=== PATIENT | female | born 1995 | race American Indian/Alaskan Native ===

== ENCOUNTER 2021-09-24 18:32 | Emergency (ER) | payer SELFPAY ==
[2021-09-24 18:37] VITALS: BP 122/78
--- NOTE | 2021-09-24 18:38 | Emergency Department Report ---
ED Lower Extremity HPI - General Stated Complaint: RE-BROKE OR SPRAINED MY FOOT Time Seen by Provider: 09/24/21 18:34 - History of Present Illness Initial Comments: Patient presented with right foot pain. Last night, she thinks that she might of injured her foot with an inversion injury. She almost fell. She was still having pain today and came in. She is taken some Tylenol without true symptomatic improvement. She did take some ibuprofen with improvement. Patient is injured her foot before. She was concerned about this. She is not complaining of ankle pain or knee pain. She did not hit her head. There is no other complaint at this time. Pain is constant and worse with ambulation. - Related Data Previous Rx's Medication Instructions Recorded Last Taken Type Ibuprofen [Motrin] 800 mg PO Q8HR PRN #30 tablet 09/24/21 Unknown Rx ED Review of Systems ROS: Stated complaint: RE-BROKE OR SPRAINED MY FOOT Other details as noted in HPI Comment: All other systems reviewed and negative Constitutional: denies: weakness Eyes: denies: vision change Cardiovascular: denies: chest pain Gastrointestinal: denies: abdominal pain Musculoskeletal: as per HPI. denies: back pain Skin: denies: rash Neurological: denies: numbness Hematological/Lymphatic: denies: easy bruising ED Past Medical Hx - Medications Home Medications: Home Medications Medication Instructions Recorded Confirmed Last Taken Type Ibuprofen [Motrin] 800 mg PO Q8HR PRN #30 tablet 09/24/21 Unknown Rx ED Physical Exam - General Limitations: No Limitations, Other (Pulse ox noted normal) General appearance: alert, in no apparent distress - Head Head exam: Present: atraumatic, normocephalic - Eye Eye exam: Present: normal appearance, EOMI - ENT ENT exam: Present: normal external ear exam - Neck Neck exam: Present: normal inspection - Respiratory Respiratory exam: Absent: respiratory distress - Cardiovascular Cardiovascular Exam: Absent: JVD - Extremities Exam Extremities exam: Present: other (Tenderness with palpation over the dorsum of the right foot in the lateral distribution. Pulses are equal and symmetric. There is no malleolar tenderness). Absent: pedal edema - Back Exam Back exam: Present: full ROM - Neurological Exam Neurological exam: Present: alert, oriented X3, abnormal gait (Antalgic) - Psychiatric Psychiatric exam: Present: normal affect, normal mood - Skin Skin exam: Present: warm ED Course Vital Signs 09/24/21 09/24/21 18:36 18:37 Temperature 98.1 F Pulse Rate 80 Respiratory 16 Rate Blood Pressure 122/78 [Right] O2 Sat by Pulse 100 Oximetry - Reevaluation(s) Reevaluation #1: 09/24/21 18:35 X-rays were ordered. ED Lower Extremity MDM - Radiology Data Radiology results: report reviewed - Medical Decision Making Patient presents with foot injury. There is no evidence of acute fracture or dislocation. There is no ankle fracture or dislocation noted. Pulses are symmetric and equal. There is no evidence of neurovascular injury or compromise. She was treated symptomatically for follow-up. Critical Care Time: No Critical care attestation.: If time is entered above; I have spent that time in minutes in the direct care of this critically ill patient, excluding procedure time. ED Disposition Clinical Impression: Foot sprain Qualifiers: Encounter type: initial encounter Laterality: right Qualified Code(s): S93.601A - Unspecified sprain of right foot, initial encounter Disposition: HOME / SELF CARE / HOMELESS Is pt being admited?: No Condition: Stable Instructions: Foot Sprain, Elastic Bandage and RICE Therapy, How to Use Cold Therapy Additional Instructions: Ice and elevate. Return for problems. Follow-up with your regular doctor for recheck. Prescriptions: Ibuprofen [Motrin] 800 mg PO Q8HR PRN #30 tablet PRN Reason: Pain, Moderate (4-6) Referrals: PRIMARY CARE, [Referring] - 3-5 Days
--- NOTE | 2021-09-24 18:58 | XRay Report ---
Right foot 3 views INDICATION: Right foot pain IMPRESSION: No fracture or subluxation of the right foot is identified. No soft tissue abnormality id entified. Signer Name: Samm Eaton MD Signed: 09/24/2021 6:53 PM Workstation Name: [id number]
== END 2021-09-24 19:07 | disposition home or self-care (01) ==
LOC: ED 18:32
DX: S93.601A Unspecified sprain of right foot, initial encounter (principal); X58.XXXA Exposure to other specified factors, initial encounter; Y93.89 Activity, other specified; Y92.89 Other specified places as the place of occurrence of the external cause; Y99.8 Other external cause status
CPT/HCPCS: 99283

== ENCOUNTER 2022-01-30 10:31 | Day surgery (SDC) | payer OTHER ==
--- NOTE | 2022-01-29 19:35 | History and Physical Report ---
History of Present Illness Date of examination: 01/30/22 Medications and Allergies Allergies Allergy/AdvReac Type Severity Reaction Status Date / Time No Known Allergies Allergy Verified 01/20/22 14:29 Home Medications Medication Instructions Recorded Confirmed Last Taken Type Ibuprofen [Motrin] 800 mg PO PRN PRN 01/20/22 12/11/21 History Active Meds: Active Medications Acetaminophen (Acetaminophen 500 Mg Tab) 1,000 mg PO PREOP DL Stop: 01/30/22 20:00 Celecoxib (Celecoxib 200 Mg Cap) 200 mg PO PREOP NR Stop: 01/30/22 20:00 Gabapentin (Gabapentin 300 Mg Cap) 300 mg PO PREOP NR Stop: 01/30/22 22:00 Lactated Ringer's (Lactated Ringers) 1,000 mls @ 100 mls/hr IV DIRECT DL Stop: 01/30/22 23:59 Midazolam HCl (Midazolam 2 Mg/2 Ml Inj) 2 mg IV PREOP NR Stop: 01/30/22 20:00 Scopolamine (Scopolamine Transdermal Patch 72 Hr) 1 each TD PREOP NR Stop: 01/30/22 20:00 Results All other labs normal.
[~2022-01-30 10:31] MED LIST: ACETAMINOPHEN 500 MG TAB PO SCH; CELECOXIB 200 MG CAP PO NR; GABAPENTIN 300 MG CAP PO NR; LACTATED RINGERS 1,000 ML IV SCH; MIDAZOLAM 2 MG/2 ML INJ IV NR; SCOPOLAMINE TRANSDERMAL PATCH 72 HR TD NR
[2022-01-30] MEDS ORDERED: HYDROmorphone 1 MG/1 ML INJ IV PRN (11:39)
[2022-01-30] MEDS ORDERED: oxyCODONE /ACETAMINOPHEN 5-325MG TAB PO PRN (11:39)
[2022-01-30] MEDS ORDERED: ONDANSETRON 4 MG/2 ML INJ IV PRN (11:39)
--- NOTE | 2022-01-30 11:39 | Anesthesia Consultation ---
Anesthesia Consult and Med Hx Date of service: 01/30/22 - Airway Anesthetic Teeth Evaluation: Good ROM Head & Neck: Adequate Mental/Hyoid Distance: Adequate Mallampati Class: Class I Intubation Access Assessment: Good - Pre-Operative Health Status ASA Pre-Surgery Classification: ASA1 Proposed Anesthetic Plan: General - Pulmonary Hx Smoking: Yes (occasional hookah) Hx Respiratory Symptoms: No - Cardiovascular System Hx Hypertension: No - Central Nervous System CVA: No - Endocrine Hx Renal Disease: No Hx Liver Disease: No Hx Insulin Dependent Diabetes: No Hx Non-Insulin Dependent Diabetes: No Hx Thyroid Disease: No - Additional Comments Anesthesia Medical History Comments: No hx anesthetic complications.
--- NOTE | 2022-01-30 11:39 | Anesthesia Day of Surgery ---
Anesthesia Day of Surgery - Day of Surgery Patient Examined: Yes Patient H&P Reviewed: Yes Patient is NPO: Yes
[2022-01-30] MEDS ORDERED: ROCURONIUM 50 MG/5 ML INJ IV ONE (12:38)
[2022-01-30] MEDS ORDERED: fentaNYL 100 MCG/2 ML INJ ONE (12:38)
[2022-01-30] MEDS ORDERED: propofoL 200 MG/20 ML VIAL IV ONE (12:38)
--- NOTE | 2022-01-30 12:52 | Operative Report ---
Operative Report Operative Report: Preoperative diagnosis: Pelvic pain with history of endometriosis Postoperative diagnosis: Same Procedure: Diagnostic laparoscopy with chromopertubation of the fallopian tube Surgeon: Dr. Paty Mcgregor Anesthesia: GETA Complication: None EBL: Minimal IV fluids: 1000 mL Urine output: 300 mL clear Drain: None Findings: Normal uterus ovaries and tubes bilaterally with no endometriotic lesions or FRINGE MAKER pathology noted. Bilateral spillage of methylene blue into the pelvis after chromopertubation. Procedure: Patient was consented in preop holding about risks benefits possible complications as well as alternatives to the procedure. After informed consent was obtained patient was taken to the operating room. She received excellent general endotracheal anesthesia and with no complication. She was then placed in the dorsal lithotomy position, prepped and draped in a sterile fashion. A timeout was verified, a Neely catheter was placed atraumatically. A speculum was placed in the vaginal vault, the parametria was noted to be pink with no masses lesions or nodularity. The cervix was identified, grasped with a single- tooth tenaculum, and a uterine manipulator was positioned in the endometrial cavity atraumaticlly. Attention then turned to the abdomen. An umbilical incision was made with a scalpel, taken down to the fascia which was incised sharply atraumatically. The Rangel trocar was then introduced into the abdomen atraumatically. Correct placement of the trocar was confirmed under direct visualization. The patient was placed in steep Trendelenburg. A second incision was made in the left lower quadrant, a 5 mm trocar was introduced atraumatically into the abdomen. An atraumatic grasper was placed in the 5 mm trocar port to allow for retraction and visualization. There was no pelvic pathology or endometriotic lesions or adhesions noted. At this time 100 mL of methylene blue was injected into the uterine manipulator to allow for complete and appropriate chromopertubation of the fallopian tubes bilaterally spillage of methylene blue into the pelvic cavity was noted from both fimbriated ends. At the completion of the procedure both trochars were removed atraumatically under direct visualization. The fascia was closed with 0 Vicryl, the skin closed with Monocryl and joselo. Pressure dressings were applied at both incision sites. The uterine manipulator and speculum were removed from the cervix and the vagina respectively. The Neely catheter was removed. The patient was extubated and taken to the recovery area in stable condition. Her family was notified of her stable condition immediately following the completion of the procedure. There were no complications. EBL less than 50 mL. All sponge needle and instrument counts were correct x2. Jessika Mcgregor MD
[2022-01-30] MEDS ORDERED: ONDANSETRON 4 MG/2 ML INJ ONE (12:58)
[2022-01-30] MEDS ORDERED: dexAMETHasone 20 MG/5 ML VIAL ONE (12:58)
[2022-01-30] MEDS ORDERED: KETOROLAC 30 MG/1 ML INJ ONE (12:58)
[2022-01-30] MEDS ORDERED: MEPERIDINE 25 MG/1 ML INJ ONE (15:11)
[2022-01-30] MEDS ORDERED: MEPERIDINE 25 MG/1 ML INJ IV PRN (15:16)
[2022-01-30 16:44] VITALS: BP 138/89
--- NOTE | 2022-01-30 16:56 | Operative Report ---
Operative Report Operative Report: Preoperative diagnosis: Right ovarian cyst with chronic pelvic pain, suspected endometriosis Postoperative diagnosis: Extensive endometriosis and pelvic adhesions Procedure: Operative laparoscopy with right salpingo-oophorectomy, lysis of abdominal pelvic adhesions, lysis of adhesions in the posterior cul-de-sac, left ovarian endometrioma drainage with ovarian drilling of the left ovarian cortex. Surgeon: Dr. Paty Mcgregor Anesthesia: GETA Complications: Bilateral ruptured endometriomas with extensive pelvic adhesions IV fluids: 1 L EBL: 200 mL Urine output: Adequate and clear Drains: None Findings: Extensive endometriosis with adhesions, normal uterus with large right ovary encompassing multiple endometriomas that had ruptured, enlarged left ovary with ruptured cystic cavities and remnants of chocolate cyst. Patient was consented in preop and informed consent was obtained. Risk benefits possible complications and alternatives were reviewed. She was taken to the operating room where she received excellent general endotracheal anesthesia. She was then placed in the dorsal lithotomy position and prepped and draped in a sterile fashion. A timeout was verified. Red rubber catheter was used to straight cath with about approximately 200 cc clear urine obtained A duckbill speculum was placed in the vagina and the cervix grasped with a tenaculum and uterine manipulator was inserted atraumatically. Attention turned to the abdomen. An infraumbilical incision was made to allow for passage of a 10 mm Rangel trocar under direct visualization atraumatically. Adequate insufflation of the abdomen was then achieved with CO2 gas. Patient was then placed in steep Trendelenburg. A left lateral 5 mm trocar and a suprapubic 5 mm trocar were then inserted under direct visualization atraumatically. The right utero-ovarian ligament was then manipulated to allow for excellent visualization of the right ovary. A large right ovarian chocolate cyst involving the entire ovarian cortex was noted. The right ovary was freed from the posterior aspect of the lateral right aspect of the uterus and a oophorectomy was performed with the LigaSure atraumatically with excellent hemostasis. The left ovary was then visualized and hemostasis from the medullary ruptured chocolate cyst achieved with electrocautery using a LigaSure. The right ovary and fallopian tube were freed from the right posterior aspect of the uterus. A procoagulant was then applied in powder form to all denuded areas with no active bleeding noted. The left 5 mm trocar was removed and a 10 mm trocar was reinserted to allow for direct visualization and appropriate passage of an Endo Catch bag. An Endo Catch bag was then inserted in the lateral trocar, the right ovary and cyst were then placed in the Endo Catch bag which was removed from the abdomen in the appropriate fashion. The Rangel trocar and the two 5 lateral trochars were then removed from the abdomen atraumatically. The fascia was closed with 0 Vicryl at all incision sites and the skin closed with Monocryl Dermabond and pressure dressings applied x3. The speculum, tenaculum and uterine manipulator were removed from the vagina, cervix and the uterus atraumatically. The patient was extubated and taken to the postop recovery area in stable condit ion. All sponge needle and instrument counts are correct x2. Patient's family was notified of her stable condition at the completion of the procedure. There were no complications. EBL 200 mL Jessika Mcgregor MD
--- NOTE | 2022-01-30 18:43 | Post Anesthesia Evaluation ---
- Post Anesthesia Evaluation Patient Participated: Yes Airway Patent: Yes Stable Respiratory Function: Yes Nausea/Vomiting: No Temp > 96.8F: Yes Pain Manageable: Yes Adequeate Hydration: Yes Anesthesia Complications: No
== END 2022-01-30 16:55 | disposition home or self-care (01) ==
LOC: OR 10:31
PROVIDERS: ATTEND Obstetrics & Gynecology
DX: N83.201 Unspecified ovarian cyst, right side (principal); R10.2 Pelvic and perineal pain; G89.29 Other chronic pain; N80.9 Endometriosis, unspecified; N73.6 Female pelvic peritoneal adhesions (postinfective); F17.210 Nicotine dependence, cigarettes, uncomplicated; Z79.899 Other long term (current) drug therapy; Z72.89 Other problems related to lifestyle; Z98.890 Other specified postprocedural states
CPT/HCPCS: 58661; 81025; 88305; J1100; J1170; J1885; J2175; J2405; J2704; J3010; J3490; J7120